=== PATIENT | male | born 1970 | race Caucasian/White ===

== ENCOUNTER 2021-01-27 10:07 | Emergency (ER) | payer BC, SELFPAY ==
--- NOTE | 2021-01-27 10:12 | ED.GENADULT ---
HPI - General Adult General Chief complaint: Unspecified Stated complaint: Blood Pressure High Time Seen by Provider: 01/27/21 10:12 Source: patient and RN notes reviewed History of Present Illness HPI narrative: Patient is a 50-year-old male who presents the urgent care with complaints of high blood pressure. Patient states that approximately 1 year ago he was taken off his blood pressure meds after losing 40 pounds. Patient states he has since then gained the weight back and has had hypertension for the last 2 weeks. Patient states that his only symptom of high blood pressure is tingling of the lips . Patient denies of any headaches, nausea, vomiting, vision change, chest pain or shortness of breath. Patient states his doctor is unable to see him until March 07 and he would consider following up somewhere else. No other acute complaints. No acute distress noted. Patient aware of the plan of care. Some parts of this dictation were generated by voice recognition software and may contain typographical and/or grammatical inaccuracies. Related Data Home Medications Medication Instructions Recorded Confirmed No Home Medications 01/27/21 01/27/21 Allergies Allergy/AdvReac Type Severity Reaction Status Date / Time No Known Allergies Allergy Verified 01/27/21 10:29 Review of Systems Review of Systems: Narrative: CONSTITUTIONAL: Denies fever, chills, or sweats. EYES: Denies visual changes, redness, or discharge. ENT: Denies rhinorrhea, congestion, sore throat, or otalgia. CARDIOVASCULAR: Denies chest pain, palpitations, or edema. RESPIRATORY: Denies cough or dyspnea. GASTROINTESTINAL: Denies abdominal pain, nausea, vomiting, or diarrhea. GENITOURINARY: Denies dysuria or hematuria. SKIN: Denies rash or itching. MUSCULOSKELETAL: Denies back pain, joint pain, or myalgia. NEUROLOGIC: Denies headache, numbness, or weakness. All other systems reviewed are negative, except as documented in HPI. PMFSH Comments At the time of my signature, I reviewed and agree with the nursing past medical, surgical, social, and family history. There is no relevant family history pertinent to the patient complaint. Exam Narrative: Exam Narrative: GENERAL: This is a well-nourished, well-developed patient, in no apparent distress. HEAD: normocephalic, atraumatic. EYES: PERRL. Sclera clear/white. Vision is grossly intact. EARS: External ears normal NOSE: External nose normal with no obvious nasal discharge, nares without redness, no rhinorrhea. THROAT: Mucous membranes moist NECK: Neck supple CARDIOVASCULAR: Regular rate and rhythm without murmurs, gallops, or rubs. RESPIRATORY: Clear to auscultation. Breath sounds equal bilaterally. No wheezes, rales, or rhonchi. SKIN: warm, intact with no suspicious lesions or rash, good texture and turgor. NEURO: awake, alert, and oriented to person, place and time. There were no obvious focal neurologic abnormalities. EXTREMITIES: No clubbing, cyanosis, or edema. Course Vital Signs Vital signs: Vital Signs Temperature 98.1 F 01/27/21 10:25 Pulse Rate 72 01/27/21 10:25 Respiratory Rate 16 01/27/21 10:25 Blood Pressure 167/106 H 01/27/21 10:25 Pulse Oximetry 99 01/27/21 10:25 Temperature 98.1 F 01/27/21 10:25 Pulse Rate 72 01/27/21 10:25 Respiratory Rate 16 01/27/21 10:25 Blood Pressure 167/106 H 01/27/21 10:25 Pulse Oximetry 99 01/27/21 10:25 Reviewed-patient is informed that they may have pre-hypertension or hypertension based on a blood pressure reading in the department. I recommend the patient call the primary care provider listed on their discharge instructions or a physician of their choice this week to arrange follow-up for further evaluation of possible pre-hypertension or hypertension. Medical Decision Making MDM Narrative Medical decision making narrative: Advised the patient to follow-up with referred primary care physician today. They will likely get you a
[2021-01-27 10:25] VITALS: BP 167/106; PULSE 72; RESP 16; TEMP 36.7; O2SAT 99
== END 2021-01-27 10:37 | disposition home or self-care (01) ==
PROVIDERS: Emergency Provider Nurse Practitioner Family; PCP Nurse Practitioner Family
DX: I10 Essential (primary) hypertension (principal)
CPT/HCPCS: 99211; G0463